=== PATIENT | male | born 1970 | race Caucasian/White ===

== ENCOUNTER 2023-09-06 15:13 | Outpatient (CLI) | payer BC | END 2023-09-06 15:14 | disposition home or self-care (01) | LOC: CSHWCC 15:13 | PROVIDERS: ATTEND Nurse Practitioner Family | DX: T24.3 Burn of third degree of lower limb, except ankle and foot (principal); T24.331D Burn of third degree of right lower leg, subsequent encounter; T25.39 Burn of third degree of multiple sites of ankle and foot; E55.9 Vitamin D deficiency, unspecified; F31.9 Bipolar disorder, unspecified | CPT/HCPCS: 11042; 11045 ==

== ENCOUNTER 2023-09-21 16:06 | Outpatient (CLI) | payer BC | END 2023-09-21 16:07 | disposition home or self-care (01) | LOC: CSHWCC 16:06 | PROVIDERS: ATTEND Nurse Practitioner Family | DX: T24.3 Burn of third degree of lower limb, except ankle and foot (principal); T24.331D Burn of third degree of right lower leg, subsequent encounter; E55.9 Vitamin D deficiency, unspecified; F31.9 Bipolar disorder, unspecified | CPT/HCPCS: 11043; 11046 ==

== ENCOUNTER 2023-09-28 13:36 | Outpatient (CLI) | payer BC | END 2023-09-28 13:37 | disposition home or self-care (01) | LOC: CSHWCC 13:36 | PROVIDERS: ATTEND Nurse Practitioner Family | DX: T24.3 Burn of third degree of lower limb, except ankle and foot (principal); T24.331D Burn of third degree of right lower leg, subsequent encounter; E55.9 Vitamin D deficiency, unspecified; F31.9 Bipolar disorder, unspecified | CPT/HCPCS: 11042; 11045 ==

== ENCOUNTER 2023-10-05 16:24 | Outpatient (CLI) | payer OTHER | END 2023-10-05 16:25 | disposition home or self-care (01) | LOC: CSHWCC 16:24 | PROVIDERS: ATTEND Nurse Practitioner Family | DX: T24.3 Burn of third degree of lower limb, except ankle and foot (principal); T24.331D Burn of third degree of right lower leg, subsequent encounter; E55.9 Vitamin D deficiency, unspecified; F31.9 Bipolar disorder, unspecified | CPT/HCPCS: 11042; 11045 ==

== ENCOUNTER 2023-10-12 14:52 | Outpatient (CLI) | payer BC | END 2023-10-12 14:53 | disposition home or self-care (01) | LOC: CSHWCC 14:52 | PROVIDERS: ATTEND Nurse Practitioner Family | DX: T24.3 Burn of third degree of lower limb, except ankle and foot (principal); T24.331D Burn of third degree of right lower leg, subsequent encounter; E55.9 Vitamin D deficiency, unspecified; F31.9 Bipolar disorder, unspecified | CPT/HCPCS: 11042; 11045; 87070; 87077; 87186; 87205 ==

== ENCOUNTER 2023-10-19 16:17 | Outpatient (CLI) | payer BC | END 2023-10-19 16:18 | disposition home or self-care (01) | LOC: CSHWCC 16:17 | PROVIDERS: ATTEND Nurse Practitioner Family | DX: T24.3 Burn of third degree of lower limb, except ankle and foot (principal); T24.331D Burn of third degree of right lower leg, subsequent encounter; E55.9 Vitamin D deficiency, unspecified; F31.9 Bipolar disorder, unspecified | CPT/HCPCS: 11042; 11045 ==

== ENCOUNTER 2023-10-26 15:31 | Outpatient (CLI) | payer BC | END 2023-10-26 15:32 | disposition home or self-care (01) | LOC: CSHWCC 15:31 | PROVIDERS: ATTEND Nurse Practitioner Family | DX: T24.3 Burn of third degree of lower limb, except ankle and foot (principal); T24.331D Burn of third degree of right lower leg, subsequent encounter; F31.9 Bipolar disorder, unspecified; E55.9 Vitamin D deficiency, unspecified | CPT/HCPCS: 11042; 11045 ==

== ENCOUNTER 2023-10-31 15:35 | Outpatient (CLI) | payer BC | END 2023-10-31 15:36 | disposition home or self-care (01) | LOC: CSHWCC 15:35 | PROVIDERS: ATTEND Nurse Practitioner Family | DX: T24.3 Burn of third degree of lower limb, except ankle and foot (principal); T24.331D Burn of third degree of right lower leg, subsequent encounter; E55.9 Vitamin D deficiency, unspecified; F31.9 Bipolar disorder, unspecified | CPT/HCPCS: 29581 ==

== ENCOUNTER 2023-11-03 15:30 | Outpatient (CLI) | payer BC | END 2023-11-03 15:31 | disposition home or self-care (01) | LOC: CSHWCC 15:30 | PROVIDERS: ATTEND Nurse Practitioner Family | DX: T24.3 Burn of third degree of lower limb, except ankle and foot (principal); T24.331D Burn of third degree of right lower leg, subsequent encounter; E55.9 Vitamin D deficiency, unspecified; F41.9 Anxiety disorder, unspecified | CPT/HCPCS: 11042; 11045 ==

== ENCOUNTER 2023-11-07 15:42 | Outpatient (CLI) | payer BC | END 2023-11-07 15:43 | disposition home or self-care (01) | LOC: CSHWCC 15:42 | PROVIDERS: ATTEND Family Medicine | DX: T24.3 Burn of third degree of lower limb, except ankle and foot (principal); T24.331D Burn of third degree of right lower leg, subsequent encounter; E55.9 Vitamin D deficiency, unspecified; F41.9 Anxiety disorder, unspecified | CPT/HCPCS: 11042; 11045; 99213; G0463 ==

== ENCOUNTER 2023-11-14 16:05 | Outpatient (CLI) | payer OTHER | END 2023-11-14 16:06 | disposition home or self-care (01) | LOC: CSHWCC 16:05 | PROVIDERS: ATTEND Nurse Practitioner Family | DX: T24.3 Burn of third degree of lower limb, except ankle and foot (principal); T24.331D Burn of third degree of right lower leg, subsequent encounter; E55.9 Vitamin D deficiency, unspecified; F31.9 Bipolar disorder, unspecified | CPT/HCPCS: 11042; 11045 ==

== ENCOUNTER 2023-12-08 15:31 | Outpatient (CLI) | payer OTHER | END 2023-12-08 15:32 | disposition home or self-care (01) | LOC: CSHWCC 15:31 | PROVIDERS: ATTEND Nurse Practitioner Family | DX: T24.3 Burn of third degree of lower limb, except ankle and foot (principal); T24.331D Burn of third degree of right lower leg, subsequent encounter; F31.9 Bipolar disorder, unspecified; E55.9 Vitamin D deficiency, unspecified | CPT/HCPCS: 29581 ==

== ENCOUNTER 2024-01-10 15:47 | Outpatient (CLI) | payer OTHER | END 2024-01-10 15:48 | disposition home or self-care (01) | LOC: CSHWCC 15:47 | PROVIDERS: ATTEND Nurse Practitioner Family | DX: T24.3 Burn of third degree of lower limb, except ankle and foot (principal); T24.331D Burn of third degree of right lower leg, subsequent encounter; E55.9 Vitamin D deficiency, unspecified; F31.9 Bipolar disorder, unspecified | CPT/HCPCS: 15271; 97597; Q4133 ==

== ENCOUNTER 2024-01-17 16:21 | Outpatient (CLI) | payer OTHER | END 2024-01-17 16:22 | disposition home or self-care (01) | LOC: CSHWCC 16:21 | PROVIDERS: ATTEND Nurse Practitioner Family | DX: T24.3 Burn of third degree of lower limb, except ankle and foot (principal); T24.331D Burn of third degree of right lower leg, subsequent encounter; E55.9 Vitamin D deficiency, unspecified; F31.9 Bipolar disorder, unspecified | CPT/HCPCS: 11042; 87070; 87077; 87081; 87186; 87205 ==

== ENCOUNTER 2024-01-24 16:13 | Outpatient (CLI) | payer OTHER | END 2024-01-24 16:14 | disposition home or self-care (01) | LOC: CSHWCC 16:13 | PROVIDERS: ATTEND Nurse Practitioner Family | DX: T24.3 Burn of third degree of lower limb, except ankle and foot (principal); T24.331D Burn of third degree of right lower leg, subsequent encounter; E55.9 Vitamin D deficiency, unspecified; F31.9 Bipolar disorder, unspecified | CPT/HCPCS: 11042; 15271; Q4133 ==

== ENCOUNTER 2024-01-27 15:02 | Outpatient (CLI) | payer BC, OTHER | END 2024-01-27 15:03 | disposition home or self-care (01) | LOC: CSHWCC 15:02 | PROVIDERS: ATTEND Nurse Practitioner Family | DX: T24.3 Burn of third degree of lower limb, except ankle and foot (principal); T24.331D Burn of third degree of right lower leg, subsequent encounter; E55.9 Vitamin D deficiency, unspecified; F31.9 Bipolar disorder, unspecified | CPT/HCPCS: 99213; G0463 ==

== ENCOUNTER 2024-01-31 15:27 | Outpatient (CLI) | payer OTHER | END 2024-01-31 15:28 | disposition home or self-care (01) | LOC: CSHWCC 15:27 | PROVIDERS: ATTEND Nurse Practitioner Family | DX: T24.3 Burn of third degree of lower limb, except ankle and foot (principal); T24.331D Burn of third degree of right lower leg, subsequent encounter; E55.9 Vitamin D deficiency, unspecified; F31.9 Bipolar disorder, unspecified | CPT/HCPCS: 11042; 87070; 87077; 87186; 87205 ==

== ENCOUNTER 2024-02-03 15:43 | Outpatient (CLI) | payer OTHER | END 2024-02-03 15:44 | disposition home or self-care (01) | LOC: CSHWCC 15:43 | PROVIDERS: ATTEND Nurse Practitioner Family | DX: T24.3 Burn of third degree of lower limb, except ankle and foot (principal); T24.331D Burn of third degree of right lower leg, subsequent encounter; E55.9 Vitamin D deficiency, unspecified; F31.9 Bipolar disorder, unspecified | CPT/HCPCS: 99213; G0463 ==

== ENCOUNTER 2024-02-07 15:52 | Outpatient (CLI) | payer OTHER | END 2024-02-07 15:53 | disposition home or self-care (01) | LOC: CSHWCC 15:52 | PROVIDERS: ATTEND Nurse Practitioner Family | DX: T24.3 Burn of third degree of lower limb, except ankle and foot (principal); T24.331D Burn of third degree of right lower leg, subsequent encounter; E55.9 Vitamin D deficiency, unspecified; F31.9 Bipolar disorder, unspecified | CPT/HCPCS: 15271; Q4133 ==

== ENCOUNTER 2024-02-14 16:34 | Outpatient (CLI) | payer OTHER | END 2024-02-14 16:35 | disposition home or self-care (01) | LOC: CSHWCC 16:34 | PROVIDERS: ATTEND Nurse Practitioner Family | DX: T24.331D Burn of third degree of right lower leg, subsequent encounter (principal); F31.9 Bipolar disorder, unspecified; L08.9 Local infection of the skin and subcutaneous tissue, unspecified; E55.9 Vitamin D deficiency, unspecified | CPT/HCPCS: 11042; 15271; 99213; G0463; Q4133 ==

== ENCOUNTER 2024-02-17 12:40 | Outpatient (CLI) | payer OTHER | END 2024-02-17 12:41 | disposition home or self-care (01) | LOC: CSHWCC 12:40 | PROVIDERS: ATTEND Nurse Practitioner Family | DX: T24.331D Burn of third degree of right lower leg, subsequent encounter (principal); F31.9 Bipolar disorder, unspecified; E55.9 Vitamin D deficiency, unspecified; L08.9 Local infection of the skin and subcutaneous tissue, unspecified | CPT/HCPCS: 99212; G0463 ==

== ENCOUNTER 2024-02-21 11:01 | Outpatient (CLI) | payer OTHER | END 2024-02-21 11:02 | disposition home or self-care (01) | LOC: CSHWCC 11:01 | PROVIDERS: ATTEND Nurse Practitioner Family | DX: T24.331D Burn of third degree of right lower leg, subsequent encounter (principal); L08.9 Local infection of the skin and subcutaneous tissue, unspecified; E55.9 Vitamin D deficiency, unspecified; F31.9 Bipolar disorder, unspecified | CPT/HCPCS: 15271; Q4133 ==

== ENCOUNTER 2024-02-24 15:02 | Outpatient (CLI) | payer OTHER | END 2024-02-24 15:03 | disposition home or self-care (01) | LOC: CSHWCC 15:02 | PROVIDERS: ATTEND Nurse Practitioner Family | DX: T24.331D Burn of third degree of right lower leg, subsequent encounter (principal); E55.9 Vitamin D deficiency, unspecified; F31.9 Bipolar disorder, unspecified; L08.9 Local infection of the skin and subcutaneous tissue, unspecified | CPT/HCPCS: 99211; G0463 ==

== ENCOUNTER 2024-03-01 09:13 | Outpatient (CLI) | payer OTHER | END 2024-03-01 09:14 | disposition home or self-care (01) | LOC: CSHWCC 09:13 | PROVIDERS: ATTEND Nurse Practitioner Family | DX: T24.331D Burn of third degree of right lower leg, subsequent encounter (principal); L08.9 Local infection of the skin and subcutaneous tissue, unspecified; E55.9 Vitamin D deficiency, unspecified; F31.9 Bipolar disorder, unspecified | CPT/HCPCS: 15271; Q4133 ==

== ENCOUNTER 2024-03-09 15:25 | Outpatient (CLI) | payer OTHER | END 2024-03-09 15:26 | disposition home or self-care (01) | LOC: CSHWCC 15:25 | PROVIDERS: ATTEND Nurse Practitioner Family | DX: T24.331D Burn of third degree of right lower leg, subsequent encounter (principal); L08.9 Local infection of the skin and subcutaneous tissue, unspecified; E55.9 Vitamin D deficiency, unspecified; F31.9 Bipolar disorder, unspecified | CPT/HCPCS: 11042; 87070; 87077; 87186; 87205; 99213; G0463 ==

== ENCOUNTER 2024-03-13 15:39 | Outpatient (CLI) | payer OTHER | END 2024-03-13 15:40 | disposition home or self-care (01) | LOC: CSHWCC 15:39 | PROVIDERS: ATTEND Nurse Practitioner Family | DX: T24.331D Burn of third degree of right lower leg, subsequent encounter (principal); E55.9 Vitamin D deficiency, unspecified; F31.9 Bipolar disorder, unspecified; L08.9 Local infection of the skin and subcutaneous tissue, unspecified | CPT/HCPCS: 15271; Q4133 ==

== ENCOUNTER 2024-03-23 11:57 | Outpatient (CLI) | payer OTHER | END 2024-03-23 11:58 | disposition home or self-care (01) | LOC: CSHWCC 11:57 | PROVIDERS: ATTEND Family Medicine | DX: T24.331D Burn of third degree of right lower leg, subsequent encounter (principal); E55.9 Vitamin D deficiency, unspecified; F31.9 Bipolar disorder, unspecified; L08.9 Local infection of the skin and subcutaneous tissue, unspecified | CPT/HCPCS: 99212; G0463 ==

== ENCOUNTER 2024-03-27 13:52 | Outpatient (CLI) | payer OTHER | END 2024-03-27 13:53 | disposition home or self-care (01) | LOC: CSHWCC 13:52 | PROVIDERS: ATTEND Nurse Practitioner Family | DX: T24.331D Burn of third degree of right lower leg, subsequent encounter (principal); L08.9 Local infection of the skin and subcutaneous tissue, unspecified; F31.9 Bipolar disorder, unspecified; E55.9 Vitamin D deficiency, unspecified | CPT/HCPCS: 11042 ==

== ENCOUNTER 2024-04-03 09:27 | Outpatient (CLI) | payer OTHER | END 2024-04-03 09:28 | disposition home or self-care (01) | LOC: CSHWCC 09:27 | PROVIDERS: ATTEND Nurse Practitioner Family | DX: T24.331D Burn of third degree of right lower leg, subsequent encounter (principal); E55.9 Vitamin D deficiency, unspecified; F31.9 Bipolar disorder, unspecified; L08.9 Local infection of the skin and subcutaneous tissue, unspecified | CPT/HCPCS: 11042 ==

== ENCOUNTER 2024-04-12 15:37 | Outpatient (CLI) | payer OTHER | END 2024-04-12 15:38 | disposition home or self-care (01) | LOC: CSHWCC 15:37 | PROVIDERS: ATTEND Nurse Practitioner Family | DX: T24.331D Burn of third degree of right lower leg, subsequent encounter (principal); E55.9 Vitamin D deficiency, unspecified; F31.9 Bipolar disorder, unspecified; L08.9 Local infection of the skin and subcutaneous tissue, unspecified | CPT/HCPCS: 11042 ==

== ENCOUNTER 2024-04-20 08:39 | Outpatient (CLI) | payer BC | END 2024-04-20 08:40 | disposition home or self-care (01) | LOC: CSHWCC 08:39 | PROVIDERS: ATTEND Nurse Practitioner Family | DX: T24.331D Burn of third degree of right lower leg, subsequent encounter (principal); E55.9 Vitamin D deficiency, unspecified; F31.9 Bipolar disorder, unspecified; L08.9 Local infection of the skin and subcutaneous tissue, unspecified | CPT/HCPCS: 11042; 87070; 87077; 87186; 87205 ==

== ENCOUNTER 2024-04-27 15:11 | Outpatient (CLI) | payer BC | END 2024-04-27 15:12 | disposition home or self-care (01) | LOC: CSHWCC 15:11 | PROVIDERS: ATTEND Nurse Practitioner Family | DX: T24.331D Burn of third degree of right lower leg, subsequent encounter (principal); F31.9 Bipolar disorder, unspecified; E55.9 Vitamin D deficiency, unspecified; L08.9 Local infection of the skin and subcutaneous tissue, unspecified ==

== ENCOUNTER 2024-05-04 11:04 | Outpatient (CLI) | payer OTHER | END 2024-05-04 11:05 | disposition home or self-care (01) | LOC: CSHWCC 11:04 | PROVIDERS: ATTEND Nurse Practitioner Family | DX: T24.331D Burn of third degree of right lower leg, subsequent encounter (principal); E55.9 Vitamin D deficiency, unspecified; F31.9 Bipolar disorder, unspecified | CPT/HCPCS: 11042 ==

== ENCOUNTER 2024-05-25 15:35 | Outpatient (CLI) | payer OTHER | END 2024-05-25 15:36 | disposition home or self-care (01) | LOC: CSHWCC 15:35 | PROVIDERS: ATTEND Nurse Practitioner Family | DX: T24.331D Burn of third degree of right lower leg, subsequent encounter (principal); E55.9 Vitamin D deficiency, unspecified; F31.9 Bipolar disorder, unspecified | CPT/HCPCS: 99213; G0463 ==